=== PATIENT | female | born 1970 | race Caucasian/White ===

== ENCOUNTER → 2017-04-21 | Outpatient (CLI) | payer BC ==
--- NOTE | 2017-04-21 09:07 | Diagnostic Imaging Report ---
Bilateral diagnostic mammogram with tomography evaluation. CAD is utilized. INDICATION: Followup cystic lesions in the right breast. COMPARISON: 10/18/2013. FINDINGS: The breasts are composed of heterogeneously dense parenchyma which decrease mammographic sensitivity. Benign-appearing calcifications seen. There is focal asymmetry in the inferior periareolar aspect of the left breast. Compression evaluation demonstrates persistent asymmetry with no suspicious mass identified. There is also an asymmetry along the medial aspect of the right CC projection which appears less prominent than the focal compression view. The area however is obscured by dense background parenchyma. IMPRESSION: Dense background parenchyma is seen bilaterally with asymmetries seen without definitive underlying mass confirmed. Ultrasound evaluation pending. ACR BI-RADS Category 0: Incomplete. (Needs additional imaging evaluation). Result letter will be mailed to the patient. Note: At least 10% of breast cancer is not imaged by mammography. Dictated by: Dictated on workstation # [id number]
--- NOTE | 2017-04-21 09:24 | Diagnostic Imaging Report ---
Bilateral breast ultrasound. INDICATION: Dense breast parenchyma on mammography with indeterminate asymmetries. FINDINGS: The four quadrants and retroareolar region of each breast were scanned. Left breast: At 12 o'clock zone, 2 cm from nipple, there is a 1.3 x 1.0 x 1.2-cm hypoechoic lesion seen with shadowing noted. This is however smoothly marginated, and no internal vascularity is identified. This lesion is indeterminate. Other areas in the left breast such as 7 o'clock position 2 cm from the nipple demonstrate the elongated cysts or dilated ducts with some septations but without internal vascularity or convincing solid component. This might explain the focal asymmetry seen in the inferior periareolar region of the left breast. Right breast: Multiple simple cysts are seen. In addition: At 12 o'clock zone, 2 cm from the nipple, there is an indeterminate hypoechoic lesion measuring 1 cm in size. Also at 9 o'clock zone, 3 cm from the nipple, there is a 1-cm hypoechoic lesion seen adjacent to a simple cyst. IMPRESSION: Indeterminate lesions in the left breast at 12 o'clock zone, 2 cm from the nipple, and in the right breast at 12 o'clock zone, 2 cm from the nipple, and at 9 o'clock zone, 3 cm from the nipple, all demonstrate smooth margins favoring benign etiology such as complicated cysts. Further evaluation with breast MRI is suggested. If the MRI is not obtained, then ultrasound reevaluation in four months would be recommended. ACR BI-RADS Category 3: Probably benign findings. Result letter will be mailed to the patient. Note: At least 10% of breast cancer is not imaged by mammography. Report was faxed to office of Dr. Zaldivar @ 9:21 AM/ethan. Dictated by: Dictated on workstation # [id number]
== END ==
LOC: RAD 07:32
PROVIDERS: ATTEND Family Medicine
DX: R92.8 Other abnormal and inconclusive findings on diagnostic imaging of breast (principal)
CPT/HCPCS: 77066

== ENCOUNTER → 2020-06-18 | Outpatient (CLI) | payer BC ==
--- NOTE | 2020-06-18 15:45 | Diagnostic Imaging Report ---
INDICATION: Palpable lump in the right breast. COMPARISON: Correlation is made to the diagnostic mammogram from earlier this same day. FINDINGS: Sonographic interrogation of the area of palpable abnormality was performed. This corresponds to the 10 o'clock location 2 to 3 cm from the nipple. There are two cysts at this location. A cyst with internal debris measures 2.3 x 1.8 x 2.5 cm. A more simple appearing cyst measures 2.7 x 1.5 x 2.2 cm. No definite internal vascularity is identified. No solid mass is seen. IMPRESSION: Simple and complex cysts in the retroareolar 10 o'clock location of the right breast corresponding to the palpable abnormality. The patient may return to routine annual screening mammography. ACR BI-RADS Category 2: Benign findings. Dictated by: Dictated on workstation # [id number]
--- NOTE | 2020-06-18 15:47 | Diagnostic Imaging Report ---
INDICATION: Palpable lump right breast. COMPARISON: 04/21/2017 and 03/05/2013. TECHNIQUE: 2D and 3D bilateral diagnostic mammography was performed with CAD. FINDINGS: A BB marker was placed in the area of palpable abnormality in the upper outer right breast. Both breasts remain heterogeneously dense, limiting the sensitivity of mammography. A rounded density in the retroareolar upper outer right breast at the area of palpable abnormality is noted, likely a cyst. Even so, ultrasound of this area is recommended. No other masses are seen. There are no malignant appearing microcalcifications. There are benign calcifications. The axillae are unremarkable. IMPRESSION: Density at the area of palpable abnormality in the retroareolar upper outer right breast is likely a cyst. Further evaluation with ultrasound is recommended and will be performed today. ACR BI-RADS Category 0: Incomplete. (Needs additional imaging evaluation). Result letter will be mailed to the patient. Note: At least 10% of breast cancer is not imaged by mammography. Dictated by: Dictated on workstation # [id number]
== END ==
LOC: RAD 14:15
PROVIDERS: ATTEND Obstetrics & Gynecology
DX: N60.01 Solitary cyst of right breast (principal); N63.10 Unspecified lump in the right breast, unspecified quadrant
CPT/HCPCS: 76642; 77066; G0279; 77062

== ENCOUNTER → 2021-07-14 | Outpatient (CLI) | payer BC ==
--- NOTE | 2021-07-14 16:59 | Diagnostic Imaging Report ---
Indication: Routine screening. Comparison is made with prior mammogram 06/18/2020 and 04/21/2017. 2-D and 3-D bilateral screening mammography was performed CAD. Both breasts are heterogeneously dense, limiting the sensitivity of mammography. Previously noted cyst in the right breast have significantly decreased in size. There are benign calcifications in the right breast. No new mass or malignant-appearing microcalcifications are seen. Axillae are unremarkable. IMPRESSION: BI-RADS Category 2 No mammographic features suspicious for malignancy are identified. Dictated by: Dictated on workstation # [id number]
== END ==
LOC: RAD 15:45
PROVIDERS: ATTEND Internal Medicine
DX: Z12.31 Encounter for screening mammogram for malignant neoplasm of breast (principal)
CPT/HCPCS: 77063; 77067

== ENCOUNTER → 2022-11-09 | Outpatient (CLI) | payer BC ==
--- NOTE | 2022-11-10 11:05 | Diagnostic Imaging Report ---
INDICATION: Screening. TECHNIQUE: Bilateral 3D screening mammography. COMPARISON: 07/14/2021 and 06/18/2020. FINDINGS: There is moderate breast parenchymal density. No new dominant mass or suspicious calcification is identified. Overall, there is no adverse change. IMPRESSION: Category 1, negative mammograms. Physical examination and annual mammographic followup are recommended. ACR BI-RADS Category 1: Negative. Result letter will be mailed to the patient. Note: At least 10% of breast cancer is not imaged by mammography. Dictated by: Dictated on workstation # [id number]
== END ==
LOC: RAD 15:45
PROVIDERS: ATTEND Internal Medicine
DX: Z12.31 Encounter for screening mammogram for malignant neoplasm of breast (principal)
CPT/HCPCS: 77063; 77067